=== PATIENT | male | born 1980 | race Caucasian/White ===

== ENCOUNTER 2019-08-15 03:50 | Emergency (ER) | payer OTHER ==
[~2019-08-15] VITALS: Ht 182.8 cm; Wt 109.1 kg
[~2019-08-15 03:50] MED LIST: AGM875T PO
--- NOTE | 2019-08-15 04:40 | NUR ---
informed pt erp in with another pt. no needs at this time.
[2019-08-15] MEDS ORDERED: RX-AMOXICILLIN 500 MG CAP #3 PPK PO STA (05:11)
[2019-08-15] MEDS ORDERED: AMOX500C2 PO (05:17)
--- NOTE | 2019-08-15 05:17 | ED EENT ---
History of Present Illness General Chief Complaint: Dental Problems/Pain Stated Complaint: JAW PAIN,POSS DENTAL PAIN Nursing Triage Note: right jaw swelling/dental pain Source: patient Exam Limitations: no limitations History of Present Illness Date Seen by Provider: Aug 15, 2019 Time Seen by Provider: 05:02 Initial Comments Patient presents to ER by private conveyance with chief complaint that he was woke up this morning with some swelling in his right jaw pain. He has bad teeth. He has not been on antibiotics for several years for this. He is not having any discharge through the mouth. No Fevers or chills nausea Allergies and Home Medications Allergies Coded Allergies: No Known Drug Allergies (Unverified , 02/23/14) Patient Home Medication List Home Medication List Reviewed: Yes Review of Systems Review of Systems Constitutional: No chills, No fever Eyes: Denies Blindness, Denies Blurred Vision, Denies Drainage Ears: Denies Dizziness, Denies Pain Nose: denies clots, denies congestion Mouth: pain, swelling, other (dental caries but no pointing or area of fluctuance or drainable.) Past Vuvxfxt-Ikfcau-Ktggov Hx Patient Social History Alcohol Use: Rarely Uses Recreational Drug Use: No Smoking Status: Current Everyday Smoker Type Used: Cigarettes 2nd Hand Smoke Exposure: Yes Recent Foreign Travel: No Contact w/Someone Who Travel: No Recent Infectious Disease Expo: No Recent Hopitalizations: No Physical Abuse: No Sexual Abuse: No Mistreated: No Fear: No Immunizations Up To Date Tetanus Booster (TDap): Unknown Seasonal Allergies Seasonal Allergies: No Past Medical History Surgeries: Yes Orthopedic Respiratory: No Cardiac: No Neurological: No Reproductive Disorders: No Genitourinary: No Gastrointestinal: No Musculoskeletal: Yes (l shoulder surgery) Endocrine: No HEENT: No Cancer: No Psychosocial: No Integumentary: No Blood Disorders: No Physical Exam Vital Signs Vital Signs - First Documented 08/15/19 03:59 Temp 36.4 Pulse 87 Resp 16 B/P (MAP) 149/99 (116) Pulse Ox 97 O2 Delivery Room Air Height, Weight, BMI Height: 6'" Weight: 200lbs. oz. [id number]; 32.00 BMI Method: General Appearance: WD/WN, no apparent distress Eyes: bilateral eye normal inspection, bilateral eye PERRL, bilateral eye EOMI Ears: bilateral ear auricle normal, bilateral ear canal normal Nose: normal inspection; No active bleeding Mouth/Throat: other (dental caries, swelling of the right cheek but no area of fluctuance tenderness or pointing/discharge) Progress/Results/Core Measures Results/Orders Vital Signs/I&O 08/15/19 03:59 Temp 36.4 Pulse 87 Resp 16 B/P (MAP) 149/99 (116) Pulse Ox 97 O2 Delivery Room Air Blood Pressure Mean: 116 Progress Progress Note : Time: 05:13 Progress Note Said the pain is not so bad that he wants anything for it just antibiotics. Departure Impression Primary Impression: Dental abscess Disposition: HOME, SELF-CARE Condition: Stable Departure-Patient Inst. Decision time for Depature: 05:14 Referrals: NO,LOCAL PHYSICIAN (PCP/Family) Primary Care Physician Patient Instructions: Tooth Abscess (DC) Add. Discharge Instructions: Orajel, heat, Tylenol 1000 mg every 8 hours, ibuprofen 800 mg every 8 hours. Amoxicillin one capsule 3 times a day for one week. Follow-up with a dentist. All discharge instructions reviewed with patient and/or family. Voiced un derstanding. Scripts Amoxicillin (Amoxicillin) 500 Mg Capsule 500 MG PO TID for 7 Days, #21 CAP 0 Refills Prov: LO SPENCER 08/15/19 LO SPENCER Aug 15, 2019 05:17
[2019-08-15 05:19] VITALS: BP 149/99
== END 2019-08-15 05:19 | disposition home or self-care (01) ==
LOC: EDUNIT# 03:50 → ER 03:56
DX: K04.7 Periapical abscess without sinus (principal); K02.9 Dental caries, unspecified; F17.210 Nicotine dependence, cigarettes, uncomplicated
CPT/HCPCS: 99283